=== PATIENT | female | born 1995 | race Two or more races ===

== ENCOUNTER → 2022-08-21 | Outpatient (REF) | payer OTHER ==
[~2022-08-21] MED LIST: ACET125EL PO
== END ==
LOC: M PLALAB 15:52
PROVIDERS: ATTEND Nurse Practitioner Family
DX: Z12.4 Encounter for screening for malignant neoplasm of cervix (principal)
CPT/HCPCS: 87624; G0123

== ENCOUNTER → 2025-04-06 | Outpatient (REF) | payer OTHER | LOC: M LAB REF 22:22 | PROVIDERS: ATTEND Physician Assistant Medical | DX: B34.9 Viral infection, unspecified (principal) ==